=== PATIENT | male | born 1985 | race Caucasian/White ===

== ENCOUNTER 2020-12-07 20:26 | Emergency (ER) | payer OTHER ==
[2020-12-07] MEDS ORDERED: RABIES VACCINE 2.5 UNIT SYRINGE IM ONE (20:54)
[2020-12-07] MEDS ORDERED: RABIES IMMUNE GLOBULIN 300 UNITS/2 ML IM STA (20:54)
--- NOTE | 2020-12-07 21:07 | ED Physician Documentation ---
PD HPI WOUND RECHECK - Stated complaint Stated Complaint: ANIMAL BITE - Chief complaint Chief Complaint: Wound - Histroy obtained from History obtained from: Patient (Staying in a rental cabin last night, they found a bat in their this morning. No clear bite. No previous rabies immunization.) Review of Systems Constitutional: reports: Reviewed and negative Cardiac: reports: Reviewed and negative PD PAST MEDICAL HISTORY - Past Medical History Past Medical History: No - Past Surgical History Past Surgical History: No - Present Medications Home Medications: Ambulatory Orders Medication Instructions Recorded Confirmed Rabies Vaccine [Rabavert] 2.5 unit IM ONCE #3 12/07/20 buPROPion [Wellbutrin Xl] 12/07/20 - Allergies Allergies/Adverse Reactions: Allergies Allergy/AdvReac Type Severity Reaction Status Date / Time No Known Drug Allergies Allergy Verified 12/07/20 20:42 - Social History Does the pt smoke?: No Smoking Status: Never smoker Does the pt drink ETOH?: Yes Does the pt have substance abuse?: No Substance Use and Type: Marijuana - Immunizations Immunizations are current?: Yes - POLST Patient has POLST: No PD ED PE NORMAL - Vitals Vital signs reviewed: Yes - General General: Alert and oriented X 3, No acute distress - Neuro Neuro: Alert and oriented X 3, Normal speech - Psych Psych: Normal mood, Normal affect Results - Vitals Vitals: Vital Signs - 24 hr 12/07/20 12/07/20 20:39 20:42 Temperature 36.8 C 36.8 C Heart Rate 115 H 115 H Respiratory 20 20 Rate Blood Pressure 140/110 H 140/110 H O2 Saturation 99 99 Oxygen O2 Source Room air PD MEDICAL DECISION MAKING - ED course ED course: 35-year-old with bat exposure, discussed CDC recommendations and recommended postexposure prophylaxis for rabies and ordered both 20 units/kg of RIG and first rabies vaccine. Patient does not live locally and was given a prescription for subsequent vaccinations but also discussed if unable to find it at a pharmacy they could go to a local ER. Departure - Departure Disposition: 01 Home, Self Care Clinical Impression: Exposure to bat without known bite Condition: Good Instructions: Rabies Prescriptions: Rabies Vaccine [Rabavert] 2.5 unit IM ONCE #3
[2020-12-07 22:02] VITALS: BP 142/82
== END 2020-12-07 22:01 | disposition home or self-care (01) ==
LOC: ED 20:26
DX: Z20.3 Contact with and (suspected) exposure to rabies (principal); Z29.14 Encounter for prophylactic rabies immune globulin
CPT/HCPCS: 90471; 96372; 99283